=== PATIENT | male | born 1960 | race Caucasian/White ===

== ENCOUNTER → 2020-04-21 | Outpatient (CLI) | payer BC ==
--- NOTE | 2020-04-21 11:38 | FL ---
EXAMINATION TYPE: FL barium swallow DATE OF EXAM: 04/21/2020 CLINICAL INDICATION: 60-year-old male R13.10, dysphagia. Increasing voice hoarseness and acid reflux for one year. COMPARISON: None Total Fluoroscopy Time: 2 minutes 32 seconds Total images: 51 FINDINGS: The swallowing mechanism is normal. Moderate degenerative disc disease mid and lower cervical spine. Mild anterior endplate spondylosis causing minimal impression on the posterior wall of the hypopharyn x and cervical esophagus. Otherwise, hypopharyngeal anatomy is preserved. The thoracic portion has a normal course and caliber. There is mild dysmotility with some residual co ntrast remains in the mid esophagus when the patient is supine or prone. Mild tertiary peristaltic wa ves are also demonstrated. The mucosa is normal and no persistent filling defect is encountered. There is a small sliding hiatal hernia. Valsalva and positional maneuvers dated not elicit any gastro esophageal reflux during the course of the exam. However, [facility] severe gastroesophageal reflux is visualized to the upper thoracic esophagus. IMPRESSION: 1. Small sliding hiatal hernia but with severe gastroesophageal reflux when the patient was being bro ught upright from the supine position. Reflux extended up to the upper thoracic esophagus. 2. Mild esophageal dysmotility.
== END | disposition home or self-care (01) ==
LOC: RADUSWWP 08:52
PROVIDERS: ATTEND Otolaryngology
DX: K21.9 Gastro-esophageal reflux disease without esophagitis (principal); K44.9 Diaphragmatic hernia without obstruction or gangrene; K22.8 Other specified diseases of esophagus
CPT/HCPCS: 74220

== ENCOUNTER → 2020-04-28 | Outpatient (CLI) | payer BC ==
--- NOTE | 2020-04-28 08:39 | CT ---
EXAMINATION TYPE: CT sinus wo con DATE OF EXAM: 04/28/2020 COMPARISON: NONE HISTORY: Chronic sinusitis per order. Hoarseness for one year. CT DLP: 615.90 mGycm. Automated Exposure Control for Dose Reduction was Utilized. TECHNIQUE: CT scan of the sinuses is performed without contrast, axial images are obtained, coronal r eformatted images are also reviewed. FINDINGS: There is fairly moderate mucosal thickening involving the maxillary sinuses bilaterally. Mi ld mucosal thickening involving the inferior aspect of the bilateral frontal sinuses. Mild mucosal th ickening involving the sphenoid sinuses bilaterally. Mild to moderate mucosal thickening involving th e ethmoid sinuses bilaterally with opacification involving the anterior right ethmoid sinuses. The os tiomeatal complex is occluded bilaterally on the coronal images due to antral mucosal thickening. Mayo al septum is deviated to right of midline. Visualized portion of mastoid air cells show no abnormal opacification. The globes are intact bilate rally. IMPRESSION: Right anterior acute ethmoid sinusitis. Significant chronic paranasal sinus disease as de tailed above. Occlusion of bilateral ostiomeatal complexes noted.
== END | disposition home or self-care (01) ==
LOC: RADCTMAIN 08:12
PROVIDERS: ATTEND Otolaryngology
DX: J01.20 Acute ethmoidal sinusitis, unspecified (principal); R13.10 Dysphagia, unspecified; K21.9 Gastro-esophageal reflux disease without esophagitis
CPT/HCPCS: 70486

== ENCOUNTER 2023-06-14 03:26 | Observation (INO) | payer BC ==
--- NOTE | 2023-06-14 03:55 | ED ---
General Adult HPI - General Chief complaint: Chest Pain Stated complaint: Chest pain Time Seen by Provider: 06/14/23 03:33 Source: patient, RN notes reviewed, old records reviewed Mode of arrival: ambulatory Limitations: no limitations - History of Present Illness Initial comments: 63-year-old male presenting for evaluation of chest pain. Patient has history of CAD status post stenting. He reports that he had indigestion, and substernal chest discomfort which woke him from sleep. He states that this is similar to previous IN. This began just prior to arrival. No associated vomiting or diaphoresis. - Related Data Previous Rx's Medication Instructions Recorded Aspirin 325 mg PO DAILY #0 tab 11/14/15 Atorvastatin [Lipitor] 80 mg PO HS #30 tab 11/14/15 Metoprolol Tartrate [Lopressor] 12.5 mg PO DAILY #30 tab 11/14/15 Nitroglycerin Sl Tabs [Nitrostat] 0.4 mg SUBLINGUAL Q5M PRN #100 tab 11/14/15 Nitroglycerin Sl Tabs [Nitrostat] 0.4 mg SUBLINGUAL Q5M PRN #25 tab 11/14/15 Prasugrel [Effient] 10 mg PO DAILY #30 tab 11/14/15 Spironolactone [Aldactone] 12.5 mg PO DAILY #30 tab 11/14/15 lisinopriL [Zestril] 5 mg PO DAILY #30 tab 11/14/15 Allergies Allergy/AdvReac Type Severity Reaction Status Date / Time No Known Allergies Allergy Verified 11/11/15 10:50 Review of Systems ROS Statement: Those systems with pertinent positive or pertinent negative responses have been documented in the HPI. ROS Other: All systems not noted in ROS Statement are negative. Past Medical History Past Medical History: GERD/Reflux, Myocardial Infarction ([place]) Last Myocardial Infarction Date:: t History of Any Multi-Drug Resistant Organisms: None Reported Past Surgical History: Heart Catheterization With Stent, Orthopedic Surgery Past Anesthesia/Blood Transfusion Reactions: No Reported Reaction Date of Last Stent Placement:: 11/11/2015 Past Psychological History: No Psychological Hx Reported Smoking Status: Former smoker Past Alcohol Use History: Occasional Past Drug Use History: None Reported - Past Family History Mother Family Medical History: Cancer Father Family Medical History: CVA/TIA General Exam Limitations: no limitations General appearance: alert, in no apparent distress Head exam: Present: atraumatic, normocephalic Eye exam: Present: normal appearance, PERRL ENT exam: Present: normal exam Neck exam: Present: normal inspection. Absent: tenderness, meningismus Respiratory exam: Present: normal lung sounds bilaterally, respiratory distress Cardiovascular Exam: Present: regular rate, irregular rhythm GI/Abdominal exam: Present: soft. Absent: distended, tenderness, guarding Extremities exam: Present: normal inspection, normal capillary refill Neurological exam: Present: alert, oriented X3, CN II-XII intact. Absent: motor sensory deficit Psychiatric exam: Present: normal affect, normal mood Skin exam: Present: warm, dry, intact. Absent: cyanosis, diaphoretic Course Vital Signs 06/14/23 03:32 Temperature 97.7 F Pulse Rate 79 Respiratory 18 Rate Blood Pressure 187/79 O2 Sat by Pulse 97 Oximetry Medical Decision Making - Medical Decision Making Was pt. sent in by a medical professional or institution (, PA, FITNESS CLUB MANAGER, urgent care, hospital, or halfway...) When possible be specific @ -No Did you speak to anyone other than the patient for history (EMS, parent, family, police, friend...)? What history was obtained from this source @ -No Did you review nursing and triage notes (agree or disagree)? Why? @ -I reviewed and agree with nursing and triage notes Were old charts reviewed (outside hosp., previous admission, EMS record, old EKG, old radiological studies, urgent care reports/EKG's, halfway records)? Report findings @ -No old charts were reviewed Differential Diagnosis (chest pain, altered mental status, abdominal pain women, abdominal pain men, vaginal bleeding, weakness, fever, dyspnea, syncope, headache, dizziness, GI bleed, back pain, seizure, CVA, palpatations, mental health, musculoskeletal)? @ -[Differential Chest Pain: Stable Angina, Unstable Angina, STEMI, NSTEMI Aortic Dissection, Pneumothorax, Musculoskeletal, Esophageal Spasm GERD, Cholecystitis, Pancreatitis, Zoster, this is not meant to be an all-inclusive list. EKG interpreted by me (3pts min.). @EKG: Sinus rhythm with frequent PVC no ST segment elevation, PVCs limiting assessment ventricular rate of 70, WI interval 165, QRS duration 121, QTc 399 X-rays interpreted by me (1pt min.). @ -Chest x-ray negative for acute cardiopulmonary findings CT interpreted by me (1pt min.). @ -[None done U/S interpreted by me (1pt. min.). @ -None done What testing was considered but not performed or refused? (CT, X-rays, U/S, labs)? Why? @ -None What meds were considered but not given or refused? Why? @ -None Did you discuss the management of the patient with other professionals (professionals i.e. , PA, FITNESS CLUB MANAGER, lab, RT, psych nurse, neonatal social worker, lawyers, teacher, chairman and chief executive officer, heel caser)? Give summary @ -EMH Was smoking cessation discussed for >3mins.? @ -No Was critical care preformed (if so, how long)? @ -No Were there social determinants of health that impacted care today? How? (Homelessness, low income, unemployed, alcoholism, drug addiction, transportation, low edu. Level, literacy, decrease access to med. care, [facility], rehab)? @ -No Was there de-escalation of care discussed even if they declined (Discuss DNR or withdrawal of care, Hospice)? DNR status @ -No What co-morbidities impacted this encounter? (DM, HTN, Smoking, COPD, CAD, Cancer, CVA, ARF, Chemo, Hep., AIDS, mental health diagnosis, sleep apnea, morbid obesity)? @Hypertension, CAD Was patient admitted / discharged? Hospital course, mention meds given and route, prescriptions, significant lab abnormalities, going to OR and other pertinent info. @ -63-year-old male with chest discomfort, history of CAD. EKG is sinus with frequent PVC, no ST segment elevation. Chest x-ray is clear. Patient has normal CBC, normal CMP, negative initial troponin. Given his risk factors and the similarity in his symptoms with previous IN he will be observed for serial cardiac enzymes, telemetry, cardiology consultation. Undiagnosed new problem with uncertain prognosis? @ -No Drug Therapy requiring intensive monitoring for toxicity (Heparin, Nitro, Insulin, Cardizem)? @ -No Were any procedures done? @ -No Diagnosis/symptom? @ -Chest pain rule out Acute, or Chronic, or Acute on Chronic? @ -Acute Uncomplicated (without systemic symptoms) or Complicated (systemic symptoms)? @ -Default Side effects of treatment? @ -No Exacerbation, Progression, or Severe Exacerbation? @ -No Poses a threat to life or bodily function? How? (Chest pain, USA, [place], pneumonia, PE, COPD, DKA, ARF, appy, cholecystitis, CVA, Diverticulitis, Homicidal, Suicidal, threat to staff... and all critical care pts) @ -[Yes, chest pain, ACS - Lab Data Result diagrams: 06/14/23 03:51 06/14/23 03:51 Lab Results 06/14/23 06/14/23 06/14/23 Range/Units 03:51 03:51 03:51 WBC 8.1 (3.8-10.6) k/uL RBC 4.62 (4.30-5.90) m/uL Hgb 14.5 (13.0-17.5) gm/dL Hct 43.4 (39.0-53.0) % MCV 93.8 (80.0-100.0) fL MCH 31.3 (25.0-35.0) pg MCHC 33.4 (31.0-37.0) g/dL RDW 12.9 (11.5-15.5) % Plt Count 124 L (150-450) k/uL MPV 8.9 Neutrophils % 73 % Lymphocytes % 17 % Monocytes % 5 % Eosinophils % 2 % Basophils % 0 % Neutrophils # 5.9 (1.3-7.7) k/uL Lymphocytes # 1.4 (1.0-4.8) k/uL Monocytes # 0.4 (0-1.0) k/uL Eosinophils # 0.2 (0-0.7) k/uL Basophils # 0.0 (0-0.2) k/uL PT 10.7 (10.0-12.5) sec INR 1.0 (<1.2) APTT 22.3 (22.0-30.0) sec Sodium 137 (137-145) mmol/L Potassium 4.3 (3.5-5.1) mmol/L Chloride 109 H (98-107) mmol/L Carbon Dioxide 19 L (22-30) mmol/L Anion Gap 9 mmol/L BUN 23 H (9-20) mg/dL Creatinine 0.75 (0.66-1.25) mg/dL Est GFR (CKD-EPI)AfAm >90 (>60 ml/min/1.73 sqM) Est GFR (CKD-EPI)NonAf >90 (>60 ml/min/1.73 sqM) Glucose 137 H (74-99) mg/dL Calcium 9.2 (8.4-10.2) mg/dL Magnesium 1.9 (1.6-2.3) mg/dL Total Bilirubin 1.0 (0.2-1.3) mg/dL AST 45 (17-59) U/L ALT 31 (4-49) U/L Alkaline Phosphatase 123 (38-126) U/L Troponin I (0.000-0.034) ng/mL NT-Pro-B Natriuret Pep 65 pg/mL Total Protein 6.4 (6.3-8.2) g/dL Albumin 4.0 (3.5-5.0) g/dL Lipase 96 (23-300) U/L 06/14/23 Range/Units 03:51 WBC (3.8-10.6) k/uL RBC (4.30-5.90) m/uL Hgb (13.0-17.5) gm/dL Hct (39.0-53.0) % MCV (80.0-100.0) fL MCH (25.0-35.0) pg MCHC (31.0-37.0) g/dL RDW (11.5-15.5) % Plt Count (150-450) k/uL MPV Neutrophils % % Lymphocytes % % Monocytes % % Eosinophils % % Basophils % % Neutrophils # (1.3-7.7) k/uL Lymphocytes # (1.0-4.8) k/uL Monocytes # (0-1.0) k/uL Eosinophils # (0-0.7) k/uL Basophils # (0-0.2) k/uL PT (10.0-12.5) sec INR (<1.2) APTT (22.0-30.0) sec Sodium (137-145) mmol/L Potassium (3.5-5.1) mmol/L Chloride (98-107) mmol/L Carbon Dioxide (22-30) mmol/L Anion Gap mmol/L BUN (9-20) mg/dL Creatinine (0.66-1.25) mg/dL Est GFR (CKD-EPI)AfAm (>60 ml/min/1.73 sqM) Est GFR (CKD-EPI)NonAf (>60 ml/min/1.73 sqM) Glucose (74-99) mg/dL Calcium (8.4-10.2) mg/dL Magnesium (1.6-2.3) mg/dL Total Bilirubin (0.2-1.3) mg/dL AST (17-59) U/L ALT (4-49) U/L Alkaline Phosphatase (38-126) U/L Troponin I <0.012 (0.000-0.034) ng/mL NT-Pro-B Natriuret Pep pg/mL Total Protein (6.3-8.2) g/dL Albumin (3.5-5.0) g/dL Lipase (23-300) U/L Disposition Clinical Impression: Chest pain Disposition: ADMITTED IP TO THIS HOSP Condition: Stable Is patient prescribed a controlled substance at d/c from ED?: No Referrals: Samuel Elizondo MD [Primary Care Provider] - 1-2 days Time of Disposition: 04:28
[2023-06-14 04:01] LABS: Basophils % (A) 0 %; Eosinophils # (A) 0.2 k/uL (0-0.7); Eosinophils % (A) 2 %; HCT 43.4 % (39.0-53.0); HGB 14.5 gm/dL (13.0-17.5); Lymphocytes # (A) 1.4 k/uL (1.0-4.8); Lymphocytes % (A) 17 %; MCH 31.3 pg (25.0-35.0); MCHC 33.4 g/dL (31.0-37.0); MCV 93.8 fL (80.0-100.0); Mean Platelet Volume 8.9; Monocytes # (A) 0.4 k/uL (0-1.0); Monocytes % (A) 5 %; Neutrophils # (A) 5.9 k/uL (1.3-7.7); Neutrophils % (A) 73 %; Platelet Count 124 k/uL (150-450); RBC 4.62 m/uL (4.30-5.90); RDW 12.9 % (11.5-15.5); WBC 8.1 k/uL (3.8-10.6)
[2023-06-14 04:08] LABS: Partial Thromboplastin Time 22.3 sec (22.0-30.0); Prothrombin Time 10.7 sec (10.0-12.5)
--- NOTE | 2023-06-14 04:10 | XR ---
EXAMINATION TYPE: XR chest 2V DATE OF EXAM: 06/14/2023 CLINICAL HISTORY: Chest pain TECHNIQUE: Frontal and lateral views of the chest are obtained. COMPARISON: Prior chest x-ray November 11, 2015 FINDINGS: There is no suspicious focal air space opacity, pleural effusion, or pneumothorax seen. T he cardiac silhouette size is stable and within normal limits. The osseous structures are intact. IMPRESSION: No acute process. No significant change from prior.
[2023-06-14 04:13] LABS: ALT 31 U/L (4-49); African American GFR (CKD) >90 (>60 ml/min/1.73 sqM); Anion Gap 9 mmol/L; Blood Urea Nitrogen 23 mg/dL (9-20); Calcium 9.2 mg/dL (8.4-10.2); Carbon Dioxide 19 mmol/L (22-30); Chloride 109 mmol/L (98-107); Glucose 137 mg/dL (74-99); Lipase 96 U/L (23-300); Magnesium 1.9 mg/dL (1.6-2.3); Non-African American GFR(CKD) >90 (>60 ml/min/1.73 sqM); Sodium 137 mmol/L (137-145); Total Protein 6.4 g/dL (6.3-8.2)
[2023-06-14 04:19] LABS: AST 45 U/L (17-59); Alkaline Phosphatase 123 U/L (38-126); Potassium 4.3 mmol/L (3.5-5.1)
[2023-06-14 04:20] LABS: NT-Pro-B-Type Natriuretic Pept 65 pg/mL
[2023-06-14] MEDS ORDERED: NALOXONE 0.4 MG/ML 1 ML VIAL IV PRN (04:25)
[2023-06-14] MEDS ORDERED: ACETAMINOPHEN TAB 325 MG TAB PO PRN (04:25)
[2023-06-14] MEDS ORDERED: ONDANSETRON 4 MG/2 ML VIAL IVP PRN (04:25)
[2023-06-14] MEDS: ASPIRIN 325 MG TAB PO STA ×2 (05:10→10:25)
[2023-06-14] MEDS: SPIRONOLACTONE 25 MG TAB PO SCH (09:09)
[2023-06-14] MEDS: PANTOPRAZOLE 40 MG/10 ML VIAL IV SCH (09:11)
[2023-06-14] MEDS ORDERED: NITROGLYCERIN SL TABS 0.4 MG TAB SUBLINGUAL PRN (10:08)
[2023-06-14] MEDS ORDERED: ALPRAZolam 0.25 MG TAB PO PRN (10:08)
[2023-06-14] MEDS ORDERED: ALPRAZolam 0.5 MG TAB PO PRN (10:08)
[2023-06-14] MEDS: METOPROLOL TARTRATE 25 MG TAB PO SCH (10:27)
[2023-06-14] MEDS: NITROGLYCERIN OINT 1 INCH/GM PACKET TOPICAL SCH (10:27)
[2023-06-14] MEDS: SODIUM CHLORIDE 0.9% 1,000 ML in EMPTY BAG 1 BAG IV SCH (11:23)
[2023-06-14] MEDS: ATORVASTATIN 80 MG TAB PO STA (11:25)
--- NOTE | 2023-06-14 11:32 | P.CRDCN ---
History of Present Illness History of present illness: HISTORY OF PRESENT ILLNESS: This is a 63-year-old male with a past medical history significant for hypertension, hyperlipidemia, and coronary artery disease. Patient follows in the office with Dr. Vu. We have been asked to see the patient in consultation for chest pain. Patient examined at the bedside. Patient states he began to have chest pain yesterday morning that woke him up from a sleep. He states that the pain was on the left side of his chest and radiated to his back. He states that he checked his blood pressure at home and it was found to be elevated at 190/105. He states with his previous ME he waited 2 days at home to get evaluated so he decided to come to the hospital early for evaluation. At the time of examination, he denies any chest pain or pressure. He denies any shortness of breath. The patient believes he had a stress test performed sometime last year that was normal to his knowledge. However there are no records of this at this time. DIAGNOSTICS: - EKG reveals sinus mechanism with frequent PVCs. - Chest xray negative for acute process. - Laboratory data: WBC 8.1. Hemoglobin 14.5. Platelet count 124. Sodium 137. Potassium 4.3. BUN 23. Creatinine 0.75. Magnesium 1.9. Troponin negative x 2. proBNP 65. - Current home cardiac medications include Lipitor 80 mg at night, lisinopril 5 mg at night, Aldactone 12.5 mg daily, aspirin 81 mg daily, Zetia 10 mg daily, and metoprolol tartrate 25 mg daily. - Most recent echocardiogram obtained in 2016 revealed ejection fraction 35 to 40%, mild MR - Cardiac catheterization history: 2016 with stenting of the distal RCA and proximal RCA REVIEW OF SYSTEMS: At the time of my exam: CONSTITUTIONAL: Denies fever or chills. HEENT: Denies blurred vision, vision changes, or eye pain. Denies hemoptysis CARDIOVASCULAR: Denies chest pain. Denies orthopnea. Denies PND. Denies palpitations RESPIRATORY: Denies shortness of breath. GASTROINTESTINAL: Denies abdominal pain. Denies nausea or vomiting. HEMATOLOGIC: Denies bleeding disorders. GENITOURINARY: Denies any blood in urine. SKIN: Denies pruitis. Denies rash. PHYSICAL EXAM: VITAL SIGNS: Reviewed. GENERAL: Well-developed in no acute distress. HEENT: Head is normocephalic. Pupils are equal, round. Sclerae anicteric. Mucous membranes of the mouth are moist. Neck supple. No JVD or thyromegaly LUNGS: Respirations even and unlabored. Lungs essentially clear to auscultation bilaterally. HEART: Regular rate and rhythm. S1 and S2 heard. ABDOMEN: Soft. Nondistended. Nontender. EXTREMITIES: Normal range of motion. No clubbing or cyanosis. Peripheral pulses intact. No lower extremity edema NEUROLOGIC: Awake and alert. Oriented x 3. ASSESSMENT: Chest pain/unstable angina Coronary artery disease with previous stenting of distal RCA and proximal RCA, 2016 History of ischemic cardiomyopathy, EF 35 to 40% Hypertension Hyperlipidemia Former nicotine dependence PLAN: Obtain 2D echo to assess cardiac structure and function Resume home cardiac medications Add Nitropaste N.p.o. Patient to undergo cardiac catheterization today with Dr. Vu Further recommendations pending patient course Nurse practitioner note has been reviewed by physician. Signing provider agrees with the documented findings, assessment, and plan of care documented by STRUCTURAL SHOP HELPER as a scribe. Past Medical History Past Medical History: GERD/Reflux, Myocardial Infarction (ME) Last Myocardial Infarction Date:: t History of Any Multi-Drug Resistant Organisms: None Reported Past Surgical History: Heart Catheterization With Stent, Orthopedic Surgery Past Anesthesia/Blood Transfusion Reactions: No Reported Reaction Date of Last Stent Placement:: 11/11/2015 Past Psychological History: No Psychological Hx Reported Smoking Status: Former smoker Past Alcohol Use History: Occasional Past Drug Use History: None Reported - Past Family History Mother Family Medical History: Cancer Father Family Medical History: CVA/TIA Medications and Allergies Home Medications Medication Instructions Recorded Confirmed Type Atorvastatin [Lipitor] 80 mg PO HS #30 tab 11/14/15 06/14/23 Rx Spironolactone [Aldactone] 12.5 mg PO DAILY #30 tab 11/14/15 06/14/23 Rx Aspirin EC [Ecotrin Low Dose] 81 mg PO DAILY 06/14/23 06/14/23 History Ezetimibe [Zetia] 10 mg PO HS 06/14/23 06/14/23 History Metoprolol Tartrate [Lopressor] 25 mg PO DAILY 06/14/23 06/14/23 History Omeprazole [PriLOSEC] 40 mg PO HS 06/14/23 06/14/23 History lisinopriL [Zestril] 5 mg PO HS 06/14/23 06/14/23 History Allergies Allergy/AdvReac Type Severity Reaction Status Date / Time No Known Allergies Allergy Verified 06/14/23 07:29 Physical Exam Vitals: Vital Signs Temp Pulse Resp BP Pulse Ox 06/14/23 05:05 60 16 134/78 97 06/14/23 03:32 97.7 F 79 18 187/79 97 Intake and Output 06/13/23 06/14/23 06/14/23 22:59 06:59 14:59 Other: Weight 122.47 kg Results 06/14/23 03:51 06/14/23 03:51 Cardiac Enzymes 06/14/23 06/14/23 Range/Units 03:51 03:51 AST 45 (17-59) U/L Troponin I <0.012 (0.000-0.034) ng/mL Coagulation 06/14/23 Range/Units 03:51 PT 10.7 (10.0-12.5) sec APTT 22.3 (22.0-30.0) sec CBC 06/14/23 Range/Units 03:51 WBC 8.1 (3.8-10.6) k/uL RBC 4.62 (4.30-5.90) m/uL Hgb 14.5 (13.0-17.5) gm/dL Hct 43.4 (39.0-53.0) % Plt Count 124 L (150-450) k/uL Comprehensive Metabolic Panel 06/14/23 Range/Units 03:51 Sodium 137 (137-145) mmol/L Potassium 4.3 (3.5-5.1) mmol/L Chloride 109 H (98-107) mmol/L Carbon Dioxide 19 L (22-30) mmol/L BUN 23 H (9-20) mg/dL Creatinine 0.75 (0.66-1.25) mg/dL Glucose 137 H (74-99) mg/dL Calcium 9.2 (8.4-10.2) mg/dL AST 45 (17-59) U/L ALT 31 (4-49) U/L Alkaline Phosphatase 123 (38-126) U/L Total Protein 6.4 (6.3-8.2) g/dL Albumin 4.0 (3.5-5.0) g/dL Current Medications Generic Name Dose Route Start Last Admin Trade Name Freq PRN Reason Stop Dose Admin Acetaminophen 650 mg 06/14/23 04:25 Acetaminophen Tab 325 Mg Tab PO Q6HR PRN Mild Pain or Fever > 100.5 Naloxone HCl 0.2 mg 06/14/23 04:25 Naloxone 0.4 Mg/Ml 1 Ml Vial IV Q2M PRN Opioid Reversal Ondansetron HCl 4 mg 06/14/23 04:25 Ondansetron 4 Mg/2 Ml Vial IVP Q8HR PRN Nausea And Vomiting Pantoprazole Sodium 40 mg 06/14/23 09:00 Pantoprazole 40 Mg/10 Ml Vial IV DAILY TRACIE Intake and Output 06/13/23 06/14/23 06/14/23 22:59 06:59 14:59 Other: Weight 122.47 kg 06/14/23 03:51 06/14/23 03:51
--- NOTE | 2023-06-14 12:21 | CA ---
Transthoracic Echo Report Name: Timo Rea Age: 63 Gender: M : 1960 Exam Date: 06/14/2023 08:19 Exam Location: [facility] Ht (in): 68 Wt (lb): 270 Ordering Physician: Wanda Hatch Attending/Referring Phys: Lunch Counter Manager Danyell Barber RDCS Procedure CPT: Indications: LV function, chest pain Cardiac Hx: Technical Quality: Contrast 1: Total Dose (mL): Contrast 2: Total Dose (mL): MEASUREMENTS (Male / Female) Normal Values 2D ECHO LV Diastolic Diameter PLAX 5.0 cm 4.2 - 5.9 / 3.9 - 5.3 cm LV Systolic Diameter PLAX 3.8 cm IVS Diastolic Thickness 1.5 cm 0.6 - 1.0 / 0.6 - 0.9 cm LVPW Diastolic Thickness 1.1 cm 0.6 - 1.0 / 0.6 - 0.9 cm LV Relative Wall Thickness 0.5 LVOT Diameter 2.5 cm Aortic Root Diameter 3.5 cm LA Systolic Diameter LX 4.7 cm 3.0 - 4.0 / 2.7 - 3.8 cm LV Diastolic Volume MOD BP 111.5 cm??? 67 - 155 / 56 - 104 cm??? LV Systolic Volume MOD BP 41.6 cm??? 22 - 58 / 19 - 49 cm??? LV Ejection Fraction MOD BP 62.7 % >= 55 % LV Cardiac Index MOD BP 1660.9 cm???/min???m??? LV Diastolic Volume MOD 4C 128.3 cm??? LV Systolic Volume MOD 4C 41.6 cm??? LV Ejection Fraction MOD 4C 67.6 % LV Cardiac Index MOD 4C 2060.9 cm???/min???m??? LV Diastolic Length 4C 8.3 cm LV Systolic Length 4C 6.3 cm LV Diastolic Volume MOD 2C 88.6 cm??? LV Systolic Volume MOD 2C 38.8 cm??? LV Ejection Fraction MOD 2C 56.2 % LV Cardiac Index MOD 2C 1183.7 cm???/min???m??? LV Diastolic Length 2C 7.4 cm LV Systolic Length 2C 5.7 cm DOPPLER AV Peak Velocity 191.0 cm/s AV Peak Gradient 14.6 mmHg AV Mean Velocity 127.7 cm/s AV Mean Gradient 7.4 mmHg AV Velocity Time Integral 40.6 cm LVOT Peak Velocity 105.1 cm/s LVOT Peak Gradient 4.4 mmHg LVOT Velocity Time Integral 22.7 cm LVOT Stroke Volume 111.3 cm??? LVOT Stroke Volume Index 47.9 ml/m??? LVOT Cardiac Index 2645.6 cm???/min???m??? AV Area Cont Eq vti 2.7 cm??? AV Area Cont Eq pk 2.7 cm??? Mitral E Point Velocity 81.3 cm/s Mitral A Point Velocity 122.9 cm/s Mitral E to A Ratio 0.7 MV Deceleration Time 180.1 ms MV E' Velocity 6.7 cm/s Mitral E to MV E' Ratio 12.2 PV Peak Velocity 89.9 cm/s PV Peak Gradient 3.2 mmHg FINDINGS Left Ventricle Moderately increased septal wall thickness. Left ventricular ejection fraction is estimated at 40-45%. Right Ventricle Right ventricular dilatation. Right Atrium Normal right atrial size. Left Atrium Mildly increased left atrial diameter. Mitral Valve Trace mitral regurgitation. Aortic Valve Trileaflet aortic valve. Tricuspid Valve Trace tricuspid regurgitation. Pulmonic Valve No pulmonic regurgitation. Pericardium No pericardial effusion. Aorta Normal size aortic root. CONCLUSIONS Mild LV systolic dysfunction Dilated right ventricle Previewed by: Dr. Andre Robertson MD (Electronically Signed) Final Date: 14 June 2023 12:20
[2023-06-14] MEDS ORDERED: VERAPAMIL 2.5 MG/ML 2 ML AMP ONE (13:58)
[2023-06-14] MEDS ORDERED: LIDOCAINE 1% INJ 10MG/ML (20 ML MDV) ONE (13:58)
[2023-06-14] MEDS ORDERED: fentaNYL (PF) 50 MCG/ML 2 ML AMP ONE (14:01)
[2023-06-14] MEDS: fentaNYL (PF) 50 MCG/ML 2 ML AMP IVP ONE (14:07)
[2023-06-14] MEDS: MIDAZOLAM 2 MG/2 ML VIAL IVP ONE (14:07)
[2023-06-14] MEDS ORDERED: HEPARIN SODIUM 1,000 UN/ML (10ML VL) ONE (14:10)
[2023-06-14] MEDS: LIDOCAINE 1% INJ 10MG/ML (20 ML MDV) SQ ONE (14:12)
[2023-06-14] MEDS: VERAPAMIL SYRINGE (5 MG/10 ML) INTRAARTER ONE (14:17)
[2023-06-14] MEDS: HEPARIN SODIUM 1,000 UN/ML (10ML VL) IVP ONE ×2 (14:17→14:30)
--- NOTE | 2023-06-14 14:27 | P.HPIM ---
History of Present Illness H&P Date: 06/14/23 Chief Complaint: Chest discomfort This is a 63-year-old patient, follows with Dr. Ahmet Elizondo. Decision Support Manager Dr. Vu. Patient received a coronary stent about [address] Capone. Chronic stable medical conditions include hypertension, hyperlipidemia, GERD, osteoarthritis. Patient now presents with indigestion-like symptoms and radiation/going to the back. Denies any dizziness lightheadedness perspiration. This was similar to her prior [place] presentation has decided to come in. Troponin negative. Cardiology consulted. Put on IV heparin for unstable angina. Review of systems: GEN.: None EYES: None HEENT: None NECK: None RESPIRATORY: None CARDIOVASCULAR: As above e GASTROINTESTINAL: None GENITOURINARY: [Patient does have nocturia and some dribbling towards the end of her urination MUSCULOSKELETAL: None LYMPHATICS: None HEMATOLOGICAL: None PSYCHIATRY: None NEUROLOGICAL: None Social history: Lives alone. Works in [employer]. Smoked about 3 packs a day for 43 years stopped about 9 years ago. Alcohol occasionally Physical examination: VITAL SIGNS: 97.7, 64, 18, 123/83, 97% room air GENERAL: BMI 41.1, reclining bed awake comfortable. EYES: Pupils equal. Conjunctiva yisel l. HEENT: External appearance of nose and ears normal, oral cavity grossly normal. NECK: JVD not raised; masses not palpable. HEART: First and second heart sounds are normal; no edema. LUNGS: Respiratory rate normal; clear to auscultation. ABDOMEN: Soft, nontender, liver spleen not palpable, no masses palpable. PSYCH: Alert and oriented x3; mood and affect yisel l. MUSCULOSKELETAL:No Clubbing/cyanosis;muscles-grossly intact NEUROLOGICAL: Cranial nerves grossly intact; no facial asymmetry, power and sensation grossly intact. LYMPHATICS: No lymph nodes palpable in the axilla and neck INVESTIGATIONS, reviewed in the clinical context: June 14: White count 8.1 hemoglobin 14.5 platelets 124 sodium 137 potassium 4.3 BUN 23 creatinine 0.75 Troponin I x 3 less than 0.012 EKG tracing personally reviewed by me-normal sinus rhythm. Frequent PVCs. Intraventricular block. Chest x-ray film personally reviewed by me-unremarkable 2D echocardiogram: EF 40-45% Assessment plan: -Unstable angina in a patient present with symptoms similar to her prior presentation requiring stents. Troponin negative. EKG showing frequent PVCs. Aspirin. IV heparin. Lopressor. -IV heparin monitoring Follow PTT -Essential hypertension Zestril 5 mg nightly, Lopressor 25 mg a day -GERD Prilosec 40 mg nightly -Chronic congestive heart failure from ischemic cardiomyopathy EF 40 to 45% Lopressor. Zestril. Aldactone. -Hyperlipidemia Zetia -Morbid obesity BMI 41.1 Weight loss measures -BPH manage clinical symptoms suggestive of the same . Discussed with the patient. Start Flomax 0.4 mg nightly Care was discussed with the patient. Questions answered. Seen by cardiology. For cardiac catheterization later this afternoon. Past Medical History Past Medical History: GERD/Reflux, Myocardial Infarction ([place]) Last Myocardial Infarction Date:: t History of Any Multi-Drug Resistant Organisms: None Reported Past Surgical History: Heart Catheterization With Stent, Orthopedic Surgery Past Anesthesia/Blood Transfusion Reactions: No Reported Reaction Date of Last Stent Placement:: 11/11/2015 Past Psychological History: No Psychological Hx Reported Smoking Status: Former smoker Past Alcohol Use History: Occasional Past Drug Use History: None Reported - Past Family History Mother Family Medical History: Cancer Father Family Medical History: CVA/TIA Medications and Allergies Home Medications Medication Instructions Recorded Confirmed Type Atorvastatin [Lipitor] 80 mg PO HS #30 tab 11/14/15 06/14/23 Rx Spironolactone [Aldactone] 12.5 mg PO DAILY #30 tab 11/14/15 06/14/23 Rx Aspirin EC [Ecotrin Low Dose] 81 mg PO DAILY 06/14/23 06/14/23 History Ezetimibe [Zetia] 10 mg PO HS 06/14/23 06/14/23 History Metoprolol Tartrate [Lopressor] 25 mg PO DAILY 06/14/23 06/14/23 History Omeprazole [PriLOSEC] 40 mg PO HS 06/14/23 06/14/23 History lisinopriL [Zestril] 5 mg PO HS 06/14/23 06/14/23 History Allergies Allergy/AdvReac Type Severity Reaction Status Date / Time No Known Allergies Allergy Verified 06/14/23 07:29 Physical Exam Vitals: Vital Signs Temp Pulse Resp BP Pulse Ox 06/14/23 09:00 64 18 123/83 97 06/14/23 05:05 60 16 134/78 97 06/14/23 03:32 97.7 F 79 18 187/79 97 Intake and Output 06/13/23 06/14/23 06/14/23 22:59 06:59 14:59 Other: Weight 122.47 kg Results CBC & Chem 7: 06/14/23 03:51 06/14/23 03:51 Labs: Abnormal Lab Results - Last 24 Hours (Table) 06/14/23 06/14/23 Range/Units 03:51 03:51 Plt Count 124 L (150-450) k/uL Chloride 109 H (98-107) mmol/L Carbon Dioxide 19 L (22-30) mmol/L BUN 23 H (9-20) mg/dL Glucose 137 H (74-99) mg/dL
[2023-06-14] MEDS: IOPAMIDOL-370 100ML BTL INJ ONE (14:38)
[2023-06-14] MEDS: SODIUM CHLORIDE 0.9% 1,000 ML IV ONE (14:39)
--- NOTE | 2023-06-14 14:45 | P.CARDCATH ---
Description of Procedure: PROCEDURES PERFORMED: Left heart catheterization, bilateral coronary angiography, ultrasound guided arterial access, iFR circumflex, iFR RCA INDICATION: Chest pain concerning for unstable angina CONSENT:I have discussed the risks, benefits and alternative therapies for the above-mentioned procedure and for both sedation/analgesia as well as necessary blood product administration, if indicated, as they pertain to this patient. The patient has indicated understanding and acceptance of the risks and procedures discussed. PROCEDURE: After the risks, benefits and alternatives of the above mentioned procedure explained in detail with the patient, informed consent was obtained. Patient was taken to the catheterization lab and prepped and draped in usual fashion. Ultrasound guidance was used to assess for arterial access. 1% lidocaine was used to anesthetize the right radial artery. A 6-Moroccan sheath was placed in the right radial artery using modified Seldinger technique and ultrasound guidance. Left coronary angiography was performed with a 5-Moroccan JL 3.5 catheter and right coronary angiography was performed with a 5-Moroccan FR5 catheter in various views. A 5-Moroccan FR5 catheter was inserted into the left ventricle and pressure measurements were obtained. The decision was made to perform iFR of the circumflex and RCA. Heparin was given. A 5 Moroccan FL 5 catheter was inserted into the RCA. A 0.014 pressure wire was advanced in the proximal RCA and then normalized. It was then advanced 1 cm distal to the mid RCA lesion and iFR was performed and was normal at 0.99. Next a 5 Moroccan FL 3.5 catheter was inserted in the left main. The 0.014 pressure wire was advanced into the left main and normalized. It was then advanced just distal to the proximal circumflex lesion and iFR was performed and was normal at 0.91. The right radial sheath was removed and a TR band was placed with hemostasis achieved. The patient tolerated the procedure well. Patient was transported back to the post catheterization holding area in stable condition. Conscious Sedation: Patient was monitored under the direct supervision of myself for conscious sedation using Versed and fentanyl for a total duration of 27 minutes HEMODYNAMICS: Aortic: 113/69 LV: 111/2, LVEDP 15 SELECTIVE CORONARY ARTERIOGRAPHY: LEFT MAIN: The left main is a large caliber vessel which trifurcates into the LAD, ramus and circumflex. There is left main 30% stenosis. LEFT ANTERIOR DESCENDING CORONARY ARTERY: LAD is a large caliber vessel which wraps around to the apex. There is diffuse mild disease including 30% proximal LAD and 30% mid LAD stenosis. RAMUS INTERMEDIUS: The ramus intermedius is a moderate caliber vessel with mild luminal irregularities LEFT CIRCUMFLEX CORONARY ARTERY: Left circumflex is a small to moderate caliber vessel with a proximal circumflex 50% stenosis and otherwise mild luminal irregularities. RIGHT CORONARY ARTERY: The right coronary artery is a large caliber vessel which gives off a PDA and PLV branch and is the dominant vessel. There is a patent proximal and mid to distal RCA stent with otherwise mid RCA 50-60% stenosis and mild luminal irregularities of the PDA and PLV. FINAL IMPRESSION: 1. CAD as described above including mid RCA 50 to 60% stenosis, proximal circumflex 50% stenosis, proximal and mid LAD 30% stenosis, left main 30% stenosis 2. Normal left sided filling pressures 3. Normal iFR of circumflex and RCA PLAN: 1. Aggressive risk factor modification per most recent ACC/AHA guidelines. 2. Follow-up in the office in 1-2 weeks.
[2023-06-14] MEDS ORDERED: NON FORMULARY DRUG (Omeprazole 40 MG Capsule.Dr) PO SCH (21:00)
[2023-06-14] MEDS: TAMSULOSIN 0.4 MG CAP.ER.24H PO SCH (21:38)
[2023-06-14] MEDS: ATORVASTATIN 80 MG TAB PO SCH (21:38)
[2023-06-14] MEDS: lisinopriL 5 MG TAB PO SCH (21:39)
[2023-06-14] MEDS: EZETIMIBE 10 MG TAB PO SCH (21:39)
[2023-06-15] MEDS ORDERED: HEPARIN SODIUM,PORCINE (1 ML) 2,500 UNIT in SODIUM CHLORIDE 0.9% 250 ML IRRIGATION PRN (07:00)
[2023-06-15] MEDS ORDERED: HEPARIN SODIUM,PORCINE 10,000 UNIT in SODIUM CHLORIDE 0.9% 1,000 ML IRRIGATION PRN (07:00)
[2023-06-15] MEDS: ASPIRIN 81 MG PO SCH (08:39)
[2023-06-15 08:47] VITALS: BP 119/65; PULSE 71; RESP 17; TEMP 97.8
[2023-06-15] MEDS ORDERED: METOPROLOL TARTRATE 25 MG TAB PO SCH (09:00)
--- NOTE | 2023-06-15 09:05 | P.PN ---
Subjective HISTORY OF PRESENT ILLNESS: This is a 63-year-old male with a past medical history significant for hypertension, hyperlipidemia, and coronary artery disease. Patient follows in the office with Dr. Vu. We have been asked to see the patient in consultation for chest pain. Patient examined at the bedside. Patient states he began to have chest pain yesterday morning that woke him up from a sleep. He states that the pain was on the left side of his chest and radiated to his back. He states that he checked his blood pressure at home and it was found to be elevated at 190/105. He states with his previous ME he waited 2 days at home to get evaluated so he decided to come to the hospital early for evaluation. At the time of examination, he denies any chest pain or pressure. He denies any shortness of breath. The patient believes he had a stress test performed sometime last year that was normal to his knowledge. However there are no records of this at this time. DIAGNOSTICS: - EKG reveals sinus mechanism with frequent PVCs. - Chest xray negative for acute process. - Laboratory data: WBC 8.1. Hemoglobin 14.5. Platelet count 124. Sodium 137. Potassium 4.3. BUN 23. Creatinine 0.75. Magnesium 1.9. Troponin negative x 2. proBNP 65. - Current home cardiac medications include Lipitor 80 mg at night, lisinopril 5 mg at night, Aldactone 12.5 mg daily, aspirin 81 mg daily, Zetia 10 mg daily, and metoprolol tartrate 25 mg daily. - Most recent echocardiogram obtained in 2015 revealed ejection fraction 35 to 40%, mild MR - Cardiac catheterization history: 2015 with stenting of the distal RCA and proximal RCA 06/15/2023 Patient examined this morning. Patient is sitting up in the chair. He is status postcardiac catheterization revealing mid RCA 50 to 60% stenosis, proximal circumflex 50% stenosis, proximal and mid LAD 30% stenosis, and 30% left main stenosis. Normal left-sided filling pressures. Normal IFR of circumflex and RCA. Medical management was recommended. Patient denies any further episodes of chest pain or pressure. He denies shortness of breath. He has been up ambulating to the bathroom without difficulty. Right wrist cath site with pulse present. Vital signs are stable. Echocardiogram completed revealing ejection fraction 40 to 45%, trace MR, trace TR, and dilated right ventricle PHYSICAL EXAM: VITAL SIGNS: Reviewed. GENERAL: Well-developed in no acute distress. HEENT: Head is normocephalic. Pupils are equal, round. Sclerae anicteric. Mucous membranes of the mouth are mo LAD 30% stenosis and left main 30% stenosis. Normal left-sided filling pressures and normal IFR of circumflex and RCA.ist. Neck supple. No JVD or thyromegaly LUNGS: Respirations even and unlabored. Lungs essentially clear to auscultation bilaterally. HEART: Regular rate and rhythm. S1 and S2 heard. ABDOMEN: Soft. Nondistended. Nontender. EXTREMITIES: Normal range of motion. No clubbing or cyanosis. Peripheral pulses intact. No lower extremity edema NEUROLOGIC: Awake and alert. Oriented x 3. ASSESSMENT: Chest pain/unstable angina s/p cardiac catheterization as above Coronary artery disease with previous stenting of distal RCA and proximal RCA, 2016 History of ischemic cardiomyopathy, EF 35 to 40%, now 40 to 45% Hypertension Hyperlipidemia Former nicotine dependence PLAN: Continue current cardiac medications Patient is stable for discharge home today from a cardiac standpoint He is to follow-up postdischarge with Dr. Vu Nurse practitioner note has been reviewed by physician. Signing provider agrees with the documented findings, assessment, and plan of care documented by SH[employer]ONER as a scribe. Objective - Vital Signs Vital signs: Vital Signs Temp 97.8 F 06/15/23 07:40 Pulse 71 06/15/23 07:40 Resp 17 06/15/23 07:40 BP 119/65 06/15/23 07:40 Pulse Ox 98 06/15/23 07:40 FiO2 Intake & Output 06/14/23 06/15/23 06/15/23 18:59 06:59 18:59 Intake Total 340 Balance 340 Weight 122.47 kg Intake: IV 100 Oral 240 Other: # Voids 1 - Labs CBC & Chem 7: 06/14/23 03:51 06/14/23 03:51
--- NOTE | 2023-06-15 17:35 | P.DS ---
Providers Date of admission: 06/14/23 04:26 Expected date of discharge: 06/15/23 Attending physician: Janes Sung Consults: 06/14/23 04:25 Consult Physician Routine Consulting Provider: Mike Keenan Consult Reason/Comments: CP Do you want consulting provider notified?: Yes Primary care physician: Samuel Elizondo [facility] Course: Chief Complaint: Chest discomfort This is a 63-year-old patient, follows with Dr. Ahmet Elizondo. Investigative Agent Dr. Vu. Patient received a coronary stent about [address] Capone. Chronic stable medical conditions include hypertension, hyperlipidemia, GERD, osteoarthritis. Patient now presents with indigestion-like symptoms and radiation/going to the back. Denies any dizziness lightheadedness perspiration. This was similar to her prior [place] presentation has decided to come in. Troponin negative. Cardiology consulted. Put on IV heparin for unstable angina. June 15: Underwent cardiac catheterization. No significant stenosis. Lopressor was increased to 25 mg twice daily. Patient to follow-up with her his own packager machine. No cardiac symptoms today. Patient is feels like a new man after his Flomax started last night. Social history: Lives alone. Works in [employer]. Smoked about 3 packs a day for 43 years stopped about 9 years ago. Alcohol occasionally Physical examination: VITAL SIGNS: 97.8, 71, 17, 1 one 9 x 65, 98% room air GENERAL: Reclining, comfortable EYES: Pupils equal. Conjunctiva yisel l. HEENT: External appearance of nose and ears normal, oral cavity grossly normal. NECK: JVD not raised; masses not palpable. HEART: First and second heart sounds are normal; no edema. LUNGS: Respiratory rate normal; clear to auscultation. ABDOMEN: Soft, nontender, liver spleen not palpable, no masses palpable. PSYCH: Alert and oriented x3; mood and affect yisel l. MUSCULOSKELETAL:No Clubbing/cyanosis;muscles-grossly intact INVESTIGATIONS, reviewed in the clinical context: Cardiac catheterization: Mid RCA 50 to 60% stenosis, proximal circumflex 50%, proximal and mid LAD 30% stenosis left main 30%. June 14: White count 8.1 hemoglobin 14.5 platelets 124 sodium 137 potassium 4.3 BUN 23 creatinine 0.75 Troponin I x 3 less than 0.012 EKG tracing personally reviewed by me-normal sinus rhythm. Frequent PVCs. Intraventricular block. Chest x-ray film personally reviewed by me-unremarkable 2D echocardiogram: EF 40-45% Assessment plan: -Unstable angina in a patient present with symptoms similar to her prior presentation requiring stents. Troponin negative. EKG showing frequent PVCs. Aspirin. Received IV heparin. Lopressor. Cardiac catheterization showed nonobstructive disease and patent stents -Essential hypertension Zestril 5 mg nightly, Lopressor -GERD Prilosec 40 mg nightly -Chronic congestive heart failure from ischemic cardiomyopathy EF 40 to 45% Lopressor. Zestril. Aldactone. -Hyperlipidemia Zetia -Morbid obesity BMI 41.1 Weight loss measures -BPH, symptomatic Started on Flomax 0.4 mg nightly Disposition: Home Plan - Discharge Summary Discharge Rx Participant: Yes New Discharge Prescriptions: New Tamsulosin [Flomax] 0.4 mg PO PC-SUPPER #30 cap Nitroglycerin Sl Tabs [Nitrostat] 0.4 mg SUBLINGUAL Q5M PRN #30 tab PRN Reason: Chest Pain Continue Atorvastatin [Lipitor] 80 mg PO HS #30 tab Spironolactone [Aldactone] 12.5 mg PO DAILY #30 tab Omeprazole [PriLOSEC] 40 mg PO HS lisinopriL [Zestril] 5 mg PO HS Ezetimibe [Zetia] 10 mg PO HS Aspirin EC [Ecotrin Low Dose] 81 mg PO DAILY Changed Metoprolol Tartrate [Lopressor] 25 mg PO BID #60 tab Discharge Medication List Atorvastatin [Lipitor] 80 mg PO HS #30 tab 11/14/15 [Rx] Spironolactone [Aldactone] 12.5 mg PO DAILY #30 tab 11/14/15 [Rx] Aspirin EC [Ecotrin Low Dose] 81 mg PO DAILY 06/14/23 [History] Ezetimibe [Zetia] 10 mg PO HS 06/14/23 [History] Omeprazole [PriLOSEC] 40 mg PO HS 06/14/23 [History] lisinopriL [Zestril] 5 mg PO HS 06/14/23 [History] Metoprolol Tartrate [Lopressor] 25 mg PO BID #60 tab 06/15/23 [Rx] Nitroglycerin Sl Tabs [Nitrostat] 0.4 mg SUBLINGUAL Q5M PRN #30 tab 06/15/23 [Rx] Tamsulosin [Flomax] 0.4 mg PO PC-SUPPER #30 cap 06/15/23 [Rx] Follow up Appointment(s)/Referral(s): Jared Vu DO [STAFF PHYSICIAN] - 06/22/23 10:30 am Samuel Elizondo MD [Primary Care Provider] - 1-2 days Activity/Diet/Wound Care/Special Instructions: Do Not submerge right wrist in tubs, pools, dishes, etc. No flexing right wrist. No pulling, pushing, lifting with right extremity for 5 days. You may leave puncture open to air. Follow up in the office for a site check as scheduled for you. Discharge Disposition: HOME SELF-CARE
== END 2023-06-15 12:27 | disposition home or self-care (01) ==
LOC: EC 03:26 → 6NMEDSUR 04:26
PROVIDERS: ADMIT Hospitalist; ATTEND Hospitalist
DX: I25.110 Atherosclerotic heart disease of native coronary artery with unstable angina pectoris (principal); I11.0 Hypertensive heart disease with heart failure; I50.9 Heart failure, unspecified; K21.9 Gastro-esophageal reflux disease without esophagitis; E78.5 Hyperlipidemia, unspecified; I25.5 Ischemic cardiomyopathy; N40.0 Benign prostatic hyperplasia without lower urinary tract symptoms; I25.2 Old myocardial infarction; E66.01 Morbid (severe) obesity due to excess calories; Z68.41 Body mass index [BMI] 40.0-44.9, adult; Z87.891 Personal history of nicotine dependence; Z95.5 Presence of coronary angioplasty implant and graft; Z79.82 Long term (current) use of aspirin; Z79.899 Other long term (current) drug therapy; Z79.02 Long term (current) use of antithrombotics/antiplatelets
CPT/HCPCS: 96376; 96361; 96374; 99285; 36415; 93005; 93306; 93458; 93799; 76937; 83880; 80053; 83690; 83735; 84484; 85025; 85610; 85730; 71046; G0378 ×2; C1769 ×2; C1894; J2250; J2001; J3010; J1644; C9113 ×2; Q9967

== ENCOUNTER 2023-10-11 06:55 | Emergency (ER) | payer BC ==
[2023-10-11 07:03] VITALS: BP 171/90; PULSE 72; RESP 18; TEMP 98
--- NOTE | 2023-10-11 07:29 | ED ---
Abdominal Pain HPI - General Chief Complaint: Abdominal Pain Stated Complaint: Abdominal & Side pain Time Seen by Provider: 10/11/23 07:07 Source: patient, RN notes reviewed Mode of arrival: ambulatory Limitations: no limitations - History of Present Illness Initial Comments: This is a 63-year-old male who presents to the emergency department for abdomin al pain. States that for the last week he has had intermittent bouts of pain in the upper abdomen and last night it radiated to the right upper quadrant. He had some radiation of pain into the back as well. He has had occasional nausea but no vomiting. Also reports constipation. Denies any fevers or chills. Denies any problems with his gallbladder or similar pains in the past. Pain is currently improved when compared with last night. MD Complaint: abdominal pain - Related Data Home Medications Medication Instructions Recorded Confirmed Aspirin EC [Ecotrin Low Dose] 81 mg PO DAILY 06/14/23 10/11/23 Ezetimibe [Zetia] 10 mg PO HS 06/14/23 10/11/23 Omeprazole [PriLOSEC] 40 mg PO HS 06/14/23 10/11/23 lisinopriL [Zestril] 5 mg PO HS 06/14/23 10/11/23 Metoprolol Tartrate [Lopressor] 25 mg PO DAILY 10/11/23 10/11/23 Tamsulosin [Flomax] 0.4 mg PO HS 10/11/23 10/11/23 Previous Rx's Medication Instructions Recorded Atorvastatin [Lipitor] 80 mg PO HS #30 tab 11/14/15 Spironolactone [Aldactone] 12.5 mg PO DAILY #30 tab 11/14/15 Nitroglycerin Sl Tabs [Nitrostat] 0.4 mg SUBLINGUAL Q5M PRN #30 tab 06/15/23 Allergies Allergy/AdvReac Type Severity Reaction Status Date / Time No Known Allergies Allergy Verified 10/11/23 09:58 Review of Systems ROS Statement: Those systems with pertinent positive or pertinent negative responses have been documented in the HPI. ROS Other: All systems not noted in ROS Statement are negative. Past Medical History Past Medical History: GERD/Reflux, Hyperlipidemia, Hypertension, Myocardial Infarction ([place]) Last Myocardial Infarction Date:: t History of Any Multi-Drug Resistant Organisms: None Reported Past Surgical History: Heart Catheterization With Stent, Orthopedic Surgery Past Anesthesia/Blood Transfusion Reactions: No Reported Reaction Date of Last Stent Placement:: 11/11/2015 Past Psychological History: No Psychological Hx Reported Smoking Status: Former smoker Past Alcohol Use History: Occasional Past Drug Use History: None Reported - Past Family History Mother Family Medical History: Cancer Father Family Medical History: CVA/TIA General Exam Limitations: no limitations General appearance: alert, in no apparent distress Head exam: Present: atraumatic, normocephalic, normal inspection Respiratory exam: Present: normal lung sounds bilaterally. Absent: respiratory distress, wheezes, rales, rhonchi, stridor Cardiovascular Exam: Present: regular rate, normal rhythm, normal heart sounds. Absent: systolic murmur, diastolic murmur, rubs, gallop, clicks GI/Abdominal exam: Present: soft, tenderness (RUQ), normal bowel sounds. Absent: distended Back exam: Absent: CVA tenderness (R), CVA tenderness (L) Neurological exam: Present: alert, oriented X3, CN II-XII intact Psychiatric exam: Present: normal affect, normal mood Skin exam: Present: warm, dry, intact, normal color. Absent: rash Course Vital Signs 10/11/23 07:02 Temperature 98 F Pulse Rate 72 Respiratory 18 Rate Blood Pressure 171/90 O2 Sat by Pulse 97 Oximetry Medical Decision Making - Medical Decision Making This is a 63 year old male who presents to the emergency department for abdominal pain. Was pt. sent in by a medical professional or institution? @ -No Did you speak to anyone other than the patient for history? @ -No Did you review nursing and triage notes? @ -Yes, and I agree, it is accurate with regards to the patient's symptoms. Were old charts reviewed? @ -No Differential Diagnosis? @ -Differential Abdominal Pain Men: Appendicitis, cholecystitis, diverticulosis, ischemic bowel, pancreatitis, hepatitis, UTI, gastroenteritis, AAA, incarcerated hernia, bowel obstruction, constipation, inflammatory bowel, hepatitis, peptic ulcer disease, splenic infarction, perforated viscus, testicular torsion, this is not meant to be an all-inclusive list EKG interpreted by me (3pts min.)? @ -EKG interpreted by me demonstrating the following: Sinus rhythm. Ventricular rate 66 bpm, MD interval 180 ms, QRS duration 112 ms, QTc 388 ms. X-rays interpreted by me (1pt min.)? @ -Not obtained CT interpreted by me (1pt min.)? @ -Not obtained U/S interpreted by me (1pt. min.)? @ -Gallbladder ultrasound obtained. My interpretation identifies cholelithiasis. What testing was considered but not performed? (CT, X-rays, U/S, labs)? Why? @ -None What meds were considered but not given? Why? @ -None Did you discuss the management of the patient with other professionals? @ -No Did you reconcile home meds? @ -No Was smoking cessation discussed for >3mins.? @ -No Was critical care preformed (if so, how long)? @ -No Were there social determinants of health that impacted care today? How? (Homelessness, low income, unemployed, alcoholism, drug addiction, transportation, low edu. Level, literacy, decrease access to med. care, skilled nursing, rehab)? @ -No Was there de-escalation of care discussed even if they declined? (Discuss DNR or withdrawal of care, Hospice)? @ -No What co-morbidities impacted this encounter? (DM, HTN, Smoking, COPD, CAD, Cancer, CVA, Hep., AIDS, mental health diagnosis, sleep apnea, morbid obesity)? @ -GERD, obesity Was patient admitted / discharged? @ -Discharged. Lab work unremarkable. Urinalysis negative for signs of infection. Gallbladder ultrasound obtained demonstrating cholelithiasis without evidence of acute cholecystitis. Patient declined the need for any pain medication in the emergency department. He is advised to follow a bland and low-fat diet for the meantime to reduce the risk of symptom recurrence. Also advised ibuprofen and Tylenol as needed for pain relief. Patient given information for general surgery follow-up and he is advised to contact them for a follow-up appointment for further evaluation and discussion of treatment options. Undiagnosed new problem with uncertain prognosis? @ -None Drug Therapy requiring intensive monitoring for toxicity (Heparin, Nitro, Insulin, Cardizem)? @ -None Were any procedures done? @ -None Diagnosis/symptom? @ -Biliary colic, cholelithiasis Acute, or Chronic, or Acute on Chronic? @ -Acute Uncomplicated (without systemic symptoms) or Complicated (systemic symptoms)? @ -Uncomplicated Side effects of treatment? @ -None Exacerbation, Progression, or Severe Exacerbation] @ -Not applicable Poses a threat to life or bodily function? @ -No Return precautions reviewed in depth, the patient is instructed to return to the emergency department with any new, worsening, or concerning symptoms. Patient verbalized understanding. This case was discussed in detail with the attending ED physician, Dr. Hanna. Presentation, findings, and treatment plan discussed in detail as well. - Lab Data Result diagrams: 10/11/23 08:40 10/11/23 08:40 Lab Results 10/11/23 10/11/23 10/11/23 Range/Units 08:05 08:40 08:40 WBC 8.6 (3.8-10.6) k/uL RBC 4.33 (4.30-5.90) m/uL Hgb 13.3 (13.0-17.5) gm/dL Hct 40.9 (39.0-53.0) % MCV 94.5 (80.0-100.0) fL MCH 30.7 (25.0-35.0) pg MCHC 32.5 (31.0-37.0) g/dL RDW 12.6 (11.5-15.5) % Plt Count 167 (150-450) k/uL MPV 8.1 Neutrophils % 79 % Lymphocytes % 12 % Monocytes % 7 % Eosinophils % 1 % Basophils % 0 % Neutrophils # 6.8 (1.3-7.7) k/uL Lymphocytes # 1.0 (1.0-4.8) k/uL Monocytes # 0.6 (0-1.0) k/uL Eosinophils # 0.1 (0-0.7) k/uL Basophils # 0.0 (0-0.2) k/uL Sodium 136 L (137-145) mmol/L Potassium 4.5 (3.5-5.1) mmol/L Chloride 105 (98-107) mmol/L Carbon Dioxide 24 (22-30) mmol/L Anion Gap 7 mmol/L BUN 20 (9-20) mg/dL Creatinine 0.65 L (0.66-1.25) mg/dL Est GFR (CKD-EPI)AfAm >90 (>60 ml/min/1.73 sqM) Est GFR (CKD-EPI)NonAf >90 (>60 ml/min/1.73 sqM) Glucose 121 H (74-99) mg/dL Plasma Lactic Acid Robert (0.7-2.0) mmol/L Calcium 8.9 (8.4-10.2) mg/dL Total Bilirubin 1.1 (0.2-1.3) mg/dL AST 25 (17-59) U/L ALT 22 (4-49) U/L Alkaline Phosphatase 93 (38-126) U/L Troponin I (0.000-0.034) ng/mL Total Protein 6.2 L (6.3-8.2) g/dL Albumin 3.7 (3.5-5.0) g/dL Amylase 44 (30-110) U/L Lipase 55 (23-300) U/L Urine Color Colorless Urine Appearance Clear (Clear) Urine pH 5.5 (5.0-8.0) Ur Specific Orange 1.014 (1.001-1.035) Urine Protein Negative (Negative) Urine Glucose (UA) Negative (Negative) Urine Ketones Negative (Negative) Urine Blood Negative (Negative) Urine Nitrite Negative (Negative) Urine Bilirubin Negative (Negative) Urine Urobilinogen <2.0 (<2.0) mg/dL Ur Leukocyte Esterase Negative (Negative) 10/11/23 10/11/23 Range/Units 08:40 08:40 WBC (3.8-10.6) k/uL RBC (4.30-5.90) m/uL Hgb (13.0-17.5) gm/dL Hct (39.0-53.0) % MCV (80.0-100.0) fL MCH (25.0-35.0) pg MCHC (31.0-37.0) g/dL RDW (11.5-15.5) % Plt Count (150-450) k/uL MPV Neutrophils % % Lymphocytes % % Monocytes % % Eosinophils % % Basophils % % Neutrophils # (1.3-7.7) k/uL Lymphocytes # (1.0-4.8) k/uL Monocytes # (0-1.0) k/uL Eosinophils # (0-0.7) k/uL Basophils # (0-0.2) k/uL Sodium (137-145) mmol/L Potassium (3.5-5.1) mmol/L Chloride (98-107) mmol/L Carbon Dioxide (22-30) mmol/L Anion Gap mmol/L BUN (9-20) mg/dL Creatinine (0.66-1.25) mg/dL Est GFR (CKD-EPI)AfAm (>60 ml/min/1.73 sqM) Est GFR (CKD-EPI)NonAf (>60 ml/min/1.73 sqM) Glucose (74-99) mg/dL Plasma Lactic Acid Robert 1.0 (0.7-2.0) mmol/L Calcium (8.4-10.2) mg/dL Total Bilirubin (0.2-1.3) mg/dL AST (17-59) U/L ALT (4-49) U/L Alkaline Phosphatase (38-126) U/L Troponin I <0.012 (0.000-0.034) ng/mL Total Protein (6.3-8.2) g/dL Albumin (3.5-5.0) g/dL Amylase (30-110) U/L Lipase (23-300) U/L Urine Color Urine Appearance (Clear) Urine pH (5.0-8.0) Ur Specific Orange (1.001-1.035) Urine Protein (Negative) Urine Glucose (UA) (Negative) Urine Ketones (Negative) Urine Blood (Negative) Urine Nitrite (Negative) Urine Bilirubin (Negative) Urine Urobilinogen (<2.0) mg/dL Ur Leukocyte Esterase (Negative) - Radiology Data Radiology results: report reviewed, image reviewed Disposition Clinical Impression: Biliary colic, Cholelithiasis Disposition: HOME SELF-CARE Instructions (If sedation given, give patient instructions): Biliary Colic (ED), Gallstones (ED) Additional Instructions: Return to the emergency department with any new, worsening, or concerning symptoms. Alternate with ibuprofen and Tylenol as needed for pain relief. Follow a bland and low-fat diet for the meantime to reduce the risk of symptom recurrence. Contact the general surgery office listed below for a follow-up appointment. Let them know that you were seen in the emergency department for abdominal pain and found to have multiple gallstones. Follow up with your primary care provider in 1-2 days. Is patient prescribed a controlled substance at d/c from ED?: No Referrals: Samuel Elizondo MD [Primary Care Provider] - 1-2 days Jay Ortega MD [STAFF PHYSICIAN] - 1-2 days Time of Disposition: 09:54
[2023-10-11 08:50] LABS: Appearance,Urine Clear (Clear); Bilirubin,Urine Negative (Negative); Blood,Urine Negative (Negative); Color,Urine Colorless; Glucose,Urine (UA) Negative (Negative); Ketones,Urine Negative (Negative); Leukocyte Esterase,Urine Negative (Negative); Nitrite,Urine Negative (Negative); PH, Urine 5.5 (5.0-8.0); Protein,Urine Negative (Negative); Specific Gravity,Urine 1.014 (1.001-1.035); Urobilinogen,Urine <2.0 mg/dL (<2.0)
[2023-10-11 08:52] LABS: Basophils % (A) 0 %; Eosinophils # (A) 0.1 k/uL (0-0.7); Eosinophils % (A) 1 %; HCT 40.9 % (39.0-53.0); HGB 13.3 gm/dL (13.0-17.5); Lymphocytes % (A) 12 %; MCH 30.7 pg (25.0-35.0); MCHC 32.5 g/dL (31.0-37.0); MCV 94.5 fL (80.0-100.0); Mean Platelet Volume 8.1; Monocytes # (A) 0.6 k/uL (0-1.0); Monocytes % (A) 7 %; Neutrophils # (A) 6.8 k/uL (1.3-7.7); Neutrophils % (A) 79 %; Platelet Count 167 k/uL (150-450); RBC 4.33 m/uL (4.30-5.90); RDW 12.6 % (11.5-15.5); WBC 8.6 k/uL (3.8-10.6)
--- NOTE | 2023-10-11 09:01 | US ---
EXAMINATION TYPE: US gallbladder DATE OF EXAM: 10/11/2023 COMPARISON: NONE CLINICAL INDICATION: Male, 63 years old with history of RUQ pain; RUQ pain x 5 days TECHNIQUE: Multiple sonographic images of the right upper quadrant are obtained. FINDINGS: EXAM MEASUREMENTS: Liver Length: 15.6 cm Gallbladder Wall: 0.32 cm CBD: 0.53 cm Right Kidney: 11.1 x 4.7 x 5.9 cm Pancreas: Tail obscured by overlying bowel gas, parts seen appear wnl Liver: Heterogeneous. Hypoechoic area seen adjacent to GB measuring 5.9cm Gallbladder: layer of sludge seen. Hyperechoic area seen measuring 3.4cm. Wall is measuring upper li mits of normal Evidence for sonographic Parks's sign: No CBD: wnl Right Kidney: wnl IMPRESSION: 1. Hepatocellular disease. 2. Biliary sludge/cholelithiasis. 3. Hepatocellular disease.
[2023-10-11 09:14] LABS: ALT 22 U/L (4-49); AST 25 U/L (17-59); African American GFR (CKD) >90 (>60 ml/min/1.73 sqM); Albumin 3.7 g/dL (3.5-5.0); Alkaline Phosphatase 93 U/L (38-126); Amylase 44 U/L (30-110); Anion Gap 7 mmol/L; Blood Urea Nitrogen 20 mg/dL (9-20); Calcium 8.9 mg/dL (8.4-10.2); Carbon Dioxide 24 mmol/L (22-30); Chloride 105 mmol/L (98-107); Glucose 121 mg/dL (74-99); Lipase 55 U/L (23-300); Non-African American GFR(CKD) >90 (>60 ml/min/1.73 sqM); Potassium 4.5 mmol/L (3.5-5.1); Sodium 136 mmol/L (137-145); Total Bilirubin 1.1 mg/dL (0.2-1.3); Total Protein 6.2 g/dL (6.3-8.2)
[2023-10-11] MEDS: ONDANSETRON 4 MG ODT STARTER PACK 2 TAB BTL PO STA (10:02)
[2023-10-11] MEDS: ACET/COD 300 MG/30 MG STARTER PACK 6 TAB BTL PO STA (10:02)
== END 2023-10-11 10:08 | disposition home or self-care (01) ==
LOC: EC 06:55
DX: K80.70 Calculus of gallbladder and bile duct without cholecystitis without obstruction (principal); Z87.891 Personal history of nicotine dependence; K21.9 Gastro-esophageal reflux disease without esophagitis; E66.9 Obesity, unspecified; Z68.41 Body mass index [BMI] 40.0-44.9, adult; Z79.899 Other long term (current) drug therapy
CPT/HCPCS: 99284; 36415; 93005; 80053; 82150; 83605; 83690; 84484; 85025; 81003; 76705; S0119

== ENCOUNTER 2024-03-26 06:09 | Day surgery (SDC) | payer BC ==
[~2024-03-26 06:09] MED LIST: HYDROmorphone 0.5 MG/0.5 ML SYRINGE IVP PRN
[2024-03-26] MEDS: IV FLUID CONTINUATION 1,000 ML IV ONE (06:26)
[2024-03-26 06:36] VITALS: RESP 16
[2024-03-26 06:55] LABS: Basophils % (A) 1 %; Eosinophils # (A) 0.2 k/uL (0-0.7); Eosinophils % (A) 4 %; HCT 43.1 % (39.0-53.0); HGB 14.3 gm/dL (13.0-17.5); Lymphocytes # (A) 1.6 k/uL (1.0-4.8); Lymphocytes % (A) 25 %; MCH 31.3 pg (25.0-35.0); MCHC 33.1 g/dL (31.0-37.0); MCV 94.6 fL (80.0-100.0); Mean Platelet Volume 8.1; Monocytes # (A) 0.4 k/uL (0-1.0); Monocytes % (A) 7 %; Neutrophils # (A) 3.9 k/uL (1.3-7.7); Neutrophils % (A) 62 %; Platelet Count 162 k/uL (150-450); RBC 4.55 m/uL (4.30-5.90); RDW 12.5 % (11.5-15.5); WBC 6.3 k/uL (3.8-10.6)
[2024-03-26] MEDS: HEPARIN SODIUM,PORCINE 5,000 UNIT/ML 1 ML VIAL SQ PRN (06:56)
[2024-03-26] MEDS: LACTATED RINGERS 1,000 ML IV SCH (06:56)
[2024-03-26] MEDS: ONDANSETRON 4 MG/2 ML VIAL IVP ONE (06:56)
[2024-03-26] MEDS: ACETAMINOPHEN TAB 500 MG TAB PO PRN (06:57)
[2024-03-26] MEDS: DEXAMETHASONE SOD PHOSPHATE 4 MG/ML 1 ML VIAL IV ONE (06:57)
[2024-03-26] MEDS ORDERED: MIDAZOLAM 2 MG/2 ML VIAL ONE (07:25)
[2024-03-26] MEDS ORDERED: PROPOFOL 10 MG/ML 20 ML VIAL IV ONE (07:25)
[2024-03-26] MEDS ORDERED: KETOROLAC 15 MG/ML 1 ML VIAL ONE (07:25)
[2024-03-26] MEDS ORDERED: GLYCOPYRROLATE 0.2 MG/ML 2 ML VIAL ONE (07:25)
[2024-03-26] MEDS ORDERED: HYDROmorphone (PF) 1 MG/ML ONE (07:25)
[2024-03-26] MEDS ORDERED: SUCCINYLCHOLINE CHLORIDE 200 MG/10 ML VIAL IV ONE (07:25)
[2024-03-26] MEDS ORDERED: LIDOCAINE 1% INJ 10MG/ML (20 ML MDV) ONE (07:25)
[2024-03-26] MEDS ORDERED: ROCURONIUM 10 MG/ML (5 ML VIAL) IV ONE (07:25)
[2024-03-26] MEDS ORDERED: NEOSTIGMINE 1 MG/ML 10 ML VIAL ONE (07:25)
[2024-03-26] MEDS ORDERED: fentaNYL (PF) 50 MCG/ML 2 ML AMP ONE (07:25)
--- NOTE | 2024-03-26 07:25 | P.GSHP ---
History of Present Illness H&P Date: 03/26/24 Chief Complaint: Chronic cholecystitis 64-year-old male here today for cholecystectomy. Patient has been having intermittent attacks of right upper quadrant pain. Last episode in September. No change in the color of his skin urine or stool. Recent labs normal. 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 seen at [facility] for 4 days after "eye Stroke" no significant findings per pt. SOB with exertion. Last Myocardial Infarction Date:: 2015 History of Any Multi-Drug Resistant Organisms: None Reported Past Surgical History: Heart Catheterization, Heart Catheterization With Stent, Orthopedic Surgery Additional Past Surgical History / Comment(s): colonoscopy, Past Anesthesia/Blood Transfusion Reactions: No Reported Reaction Date of Last Stent Placement:: 11/11/2015 Smoking Status: Former smoker - Past Family History Mother Family Medical History: Cancer Father Family Medical History: CVA/TIA, Pulmonary Embolus Sister(s) Family Medical History: Pulmonary Embolus Medications and Allergies Home Medications Medication Instructions Recorded Confirmed Type Atorvastatin [Lipitor] 80 mg PO HS #30 tab 11/14/15 03/26/24 Rx Aspirin EC [Ecotrin Low Dose] 81 mg PO DAILY 06/14/23 03/26/24 History Ezetimibe [Zetia] 10 mg PO HS 06/14/23 03/26/24 History Omeprazole [PriLOSEC] 40 mg PO HS 06/14/23 03/26/24 History lisinopriL [Zestril] 5 mg PO HS 06/14/23 03/26/24 History Nitroglycerin Sl Tabs [Nitrostat] 0.4 mg SUBLINGUAL Q5M PRN #30 tab 06/15/23 03/26/24 Rx Metoprolol Tartrate [Lopressor] 25 mg PO DAILY 10/11/23 03/26/24 History Furosemide [Lasix] 20 mg PO DAILY 03/22/24 03/26/24 History Unk Motrin 1 tab PO DIRECTED PRN 03/22/24 03/26/24 History Unk Mutli Vitamin 1 tab PO DAILY 03/22/24 03/26/24 History Allergies Allergy/AdvReac Type Severity Reaction Status Date / Time No Known Allergies Allergy Verified 03/26/24 06:30 Surgical - Exam Vital Signs Temp Pulse Resp BP Pulse Ox 97.7 F 56 L 16 125/64 95 03/26/24 06:35 03/26/24 06:35 03/26/24 06:35 03/26/24 06:35 03/26/24 06:35 Physical exam: General: Well-developed, well-nourished HEENT: Normocephalic, sclerae nonicteric Abdomen: Nontender, nondistended Extremities: No edema Neuro: Alert and oriented Results - Labs 03/26/24 06:45 Assessment and Plan (1) Chronic cholecystitis Narrative/Plan: Will proceed with laparoscopic cholecystectomy, possible open cholecystectomy at this time. The risks of bleeding, infection, bile leak, bile duct injury, retained common bile duct stone, trocar injury, conversion to an open procedure, hernia, anesthesia related complications were reviewed. The patient understands and wishes to proceed. Current Visit: Yes Status: Acute Code(s): K81.1 - CHRONIC CHOLECYSTITIS SNOMED Code(s): 60975572
[2024-03-26] MEDS: ceFAZolin 3 GM in SODIUM CHLORIDE 0.9% 100 ML IVPB PRN (07:30)
[2024-03-26 07:43] LABS: African American GFR (CKD) >90 (>60 ml/min/1.73 sqM); Anion Gap 8 mmol/L; Blood Urea Nitrogen 23 mg/dL (9-20); Calcium 9.2 mg/dL (8.4-10.2); Carbon Dioxide 24 mmol/L (22-30); Chloride 107 mmol/L (98-107); Glucose 120 mg/dL (74-99); Non-African American GFR(CKD) >90 (>60 ml/min/1.73 sqM); Potassium 4.5 mmol/L (3.5-5.1); Sodium 139 mmol/L (137-145)
[2024-03-26 08:57] VITALS: TEMP 97
--- NOTE | 2024-03-26 09:01 | P.OP ---
Date of Procedure: 03/26/24 Procedure(s) Performed: PREOPERATIVE DIAGNOSIS: Chronic cholecystitis POSTOPERATIVE DIAGNOSIS: Same PROCEDURE: Laparoscopic cholecystectomy SURGEON: Omayra EBL: 15 cc ANESTHESIA: Gen. COMPLICATIONS: None OPERATIVE PROCEDURE: The patient was brought and placed on the operating room table in the supine position. The patient was placed under general anesthesia at that time. The abdomen was prepped and draped in the usual sterile fashion. A small vertical infraumbilical incision was made. The fascia was grasped with the Aditya forceps. The fascia was retracted anteriorly. The Veress needle was advanced into the peritoneal cavity. The saline drop test was normal. Insufflation took place up to 15 mmHg. A 5 mm optical trocar was advanced and the peritoneal cavity. 2 additional 5 mm trochars were placed in the right upper quadrant under direct visualization. A 12 mm trocar was advanced into the epigastric incision site. The gallbladder was chronically inflamed and quite tense. In order to properly grasp the gallbladder a small opening was made in the fundus and the contents were evacuated. Multiple small black-colored stones were evacuated during this. This allowed us to manipulate the gallbladder much easier. The gallbladder was retracted superiorly and laterally. The peritoneum overlying the infundibulum was bluntly dissected. The patient's cystic duct was visualized. The junction between the cystic duct common and hepatic duct was identified. The critical view of safety was achieved after blunt dissection. The cystic duct was then divided after placement of 3 12 mm clips on the patient's side and one on the specimen side. The cystic artery was identified and clipped as well. A small vessel was seen along the gallbladder fossa and clipped as well. The gallbladder was then removed from the liver bed using electrocautery. The gallbladder was chronically inflamed and adherent to the liver. The plane here between the gallbladder and liver was more difficult to visualize than usual and therefore there was some more oozing that had to be controlled using electrocautery during the removal from the gallbladder. The gallbladder was then removed from the epigastric trocar site with an Endo Catch bag. The gallbladder fossa was irrigated with saline. There was no evidence of any bleeding, stones, or biliary drainage seen. The fascia at the 12 millimeter site was closed using a ChantelleYolanda 0 Vicryl stitch. The trochars were then removed. The skin at all 4 sites was closed using a 4-0 Monocryl stitch. Skin glue was utilized on the incision sites. At the end of this procedure the sponge and needle counts were correct. DISPOSITION: Stable to the recovery room
[2024-03-26 10:07] VITALS: BP 128/78; PULSE 55
[2024-03-26] MEDS ORDERED: ACETAMINOPHEN TAB 325 MG TAB PO SCH (12:00)
[2024-03-26] MEDS ORDERED: IBUPROFEN 600 MG TAB PO SCH (15:00)
== END 2024-03-26 10:28 | disposition home or self-care (01) ==
LOC: OR 06:09
PROVIDERS: ATTEND Surgery
DX: K80.12 Calculus of gallbladder with acute and chronic cholecystitis without obstruction (principal); K21.9 Gastro-esophageal reflux disease without esophagitis; E78.5 Hyperlipidemia, unspecified; I25.10 Atherosclerotic heart disease of native coronary artery without angina pectoris; I10 Essential (primary) hypertension; E66.9 Obesity, unspecified; I25.2 Old myocardial infarction; Z86.73 Personal history of transient ischemic attack (TIA), and cerebral infarction without residual deficits; Z68.41 Body mass index [BMI] 40.0-44.9, adult; Z87.891 Personal history of nicotine dependence; Z82.3 Family history of stroke; Z79.82 Long term (current) use of aspirin; Z79.02 Long term (current) use of antithrombotics/antiplatelets; Z79.899 Other long term (current) drug therapy
CPT/HCPCS: 88304; 80048; 85025; 47562; J2250; J0330; J1644; J1100; J2710; J0690; J2405; J2003; J3010; J1171; J1885; J2704; J1596